=== PATIENT | female | born 1970 | race American Indian/Alaskan Native ===

== ENCOUNTER 2019-07-31 09:38 | Day surgery (SDC) | payer OTHER ==
[2019-07-31] MEDS ORDERED: NACL 0.9% 1000 ML 1,000 ML ONE (11:00)
[2019-07-31] MEDS ORDERED: NACL 0.9% 1000 ML 1,000 ML IV SCH (12:00)
--- NOTE | 2019-07-31 13:52 | Anesthesia Consultation ---
Anesthesia Consult and Med Hx Date of service: 07/31/19 - Airway Anesthetic Teeth Evaluation: Crowns ROM Head & Neck: Adequate Mental/Hyoid Distance: Adequate Mallampati Class: Class I Intubation Access Assessment: Good - Pulmonary Exam CTA: Yes - Cardiac Exam Cardiac Exam: RRR - Pre-Operative Health Status ASA Pre-Surgery Classification: ASA3 Proposed Anesthetic Plan: MAC - Pulmonary Hx Smoking: No Hx Respiratory Symptoms: No SOB: No Hx Sleep Apnea: Yes - Endocrine Hx Liver Disease: (ELEVATED LIVER ENZYMES) - Other Systems Hx Substance Use: Yes (Marijuana one week ago) - Additional Comments Anesthesia Medical History Comments: Hx. Pumonary fibrosis; Rheumatoid arthritis
--- NOTE | 2019-07-31 13:54 | Anesthesia Day of Surgery ---
Anesthesia Day of Surgery - Day of Surgery Patient Examined: Yes Patient H&P Reviewed: Yes Patient is NPO: Yes
[2019-07-31] MEDS ORDERED: SUBLIMAZE ONE (13:58)
[2019-07-31] MEDS ORDERED: DIPRIVAN 10 MG/ML IV ONE (13:58)
--- NOTE | 2019-07-31 14:09 | Operative Report ---
Operative Report Operative Report: Date of procedure: 07/31/2019 Procedure: Esophagogastroduodenoscopy with multiple mucosal biopsies Attending physician: Bebeto Yadav MD Furnace Charging Machine Operator: Bebeto Yadav MD Indication: Patient is a 49-year-old female who presented with a history of epigastric pain heartburn indigestion with gastroparesis. An upper endoscopy is done to assess patient so that treatment may be directed based on the findings. Consent: Informed consent was obtained after advising the patient and family regarding nature of this procedure, its indications, potential benefits as well as possible complications including but not limited to bleeding perforation and adverse reaction to medication, infection as well as other cardiopulmonary complications. An informed written and verbal consent was then obtained after due opportunity was provided for questions and answers. Monitoring: Patient was monitored continuously with pulse oximetry and electrocardiographic recordings as well as blood pressure recordings. Vital signs remained stable throughout this procedure with no untoward events. Preoperative assessment: Patient was assessed immediately prior to this procedure for capacity to tolerate monitored anesthesia care and moderate sedation as well as general anesthesia. Patient's ASA classification is 2, Mall ampati class is 2, Hyomental distance is 3. Instrument: Olympus video endoscope Medications: Propofol given intravenously in divided doses. For details please refer to anesthesia records. Description of procedure: Patient was placed in the left lateral decubitus position after achieving sedation, the endoscope was introduced into the esophagus under direct vision. It was then advanced beyond the esophagus into the stomach and then beyond the stomach into the duodenum and to the second portion of the duodenum. It was subsequently withdrawn with careful inspection of all mucosal surfaces with the following findings. Findings: In the esophagus, the Z line was irregular at 38 cm. There was erythema and some erosions, seen in the gastric antrum. Biopsies of the antrum were obtained for histopathology. The duodenum was normal to second portion. Impression: Irregular Z line Antral erosions Gastric antral erythema. Plan: Follow pathology report. Continue treatment with proton pump inhibitors and direct additional treatment based on the pathology report. There was no retained gastric contents given stated history of gastroparesis.
--- NOTE | 2019-07-31 14:10 | Discharge Summary ---
Short Stay Discharge Plan Activity: advance as tolerated Weight Bearing Status: Weight Bear as Tolerated Diet: regular Follow up with: [facility] [Primary Care Provider] - 7 Days
[2019-07-31 14:53] VITALS: BP 138/80
== END 2019-07-31 09:39 | disposition home or self-care (01) ==
LOC: GIO 09:38
PROVIDERS: ATTEND Internal Medicine Gastroenterology
DX: K31.84 Gastroparesis (principal); R12 Heartburn; G47.30 Sleep apnea, unspecified; M06.9 Rheumatoid arthritis, unspecified; Z88.8 Allergy status to other drugs, medicaments and biological substances; Z79.899 Other long term (current) drug therapy; Z96.653 Presence of artificial knee joint, bilateral; Z98.890 Other specified postprocedural states
CPT/HCPCS: 43239; 81025; 88305; 88342; J2704; J3010; J7030

== ENCOUNTER 2019-11-02 09:38 | Day surgery (SDC) | payer OTHER ==
[~2019-11-02 09:38] MED LIST: SODIUM CHLORIDE 0.9% 1000 ML 1,000 ML IV SCH
--- NOTE | 2019-11-02 11:10 | Anesthesia Consultation ---
Anesthesia Consult and Med Hx Date of service: 11/02/19 - Airway Anesthetic Teeth Evaluation: Good ROM Head & Neck: Adequate Mental/Hyoid Distance: Adequate Mallampati Class: Class II Intubation Access Assessment: Probably Good - Pre-Operative Health Status ASA Pre-Surgery Classification: ASA3 Proposed Anesthetic Plan: MAC - Pulmonary Hx Smoking: No Hx Respiratory Symptoms: No SOB: No COPD: No (pulmonary fibrosis) Hx Sleep Apnea: Yes - Central Nervous System Hx Neuromuscular Disorder: Yes (Sjorgen's syndrome) Hx Psychiatric Problems: Yes (PTSD) - Gastrointestinal Hx Gastroesophageal Reflux Disease: Yes - Endocrine Hx Liver Disease: (ELEVATED LIVER ENZYMES) - Other Systems Hx Substance Use: Yes (Marijuana one week ago)
--- NOTE | 2019-11-02 11:11 | Anesthesia Day of Surgery ---
Anesthesia Day of Surgery - Day of Surgery Patient Examined: Yes Patient H&P Reviewed: Yes Patient is NPO: Yes
[2019-11-02] MEDS ORDERED: PROPOFOL 200 MG/20 ML VIAL IV ONE ×3 (11:13→12:08)
--- NOTE | 2019-11-02 12:13 | Operative Report ---
Operative Report Operative Report: Colonoscopy with Multiple Snare polypectomies, Multiple Hot Biopsy Polypectomies, Ablation of multiple colon polyps and Multiple submucosal injections. Attending physician: Bebeto Yadav M.D. Unit Aide Tech: Bebeto Yadav M.D. Indication: Patient is a 49-year-old female who presents for screening colonoscopy. This colonoscopy serves to evaluate patient so that treatment may be directed based on the findings. Consent: Informed consent was obtained after advising the patient and family re garding nature of this procedure, its indications, potential benefits as well as possible complications including but not limited to bleeding perforation and adverse reaction to medication, infection as well as other cardiopulmonary complications. An informed written and verbal consent was then obtained after due opportunity was provided for questions and answers. Monitoring: Patient was monitored continuously with pulse oximetry and electrocardiographic recordings as well as blood pressure recordings. Vital signs remained stable throughout this procedure with no untoward events. Preoperative assessment: Patient was assessed immediately prior to this procedure for capacity to tolerate monitored anesthesia care and moderate sedation as well as general anesthesia. Patient's ASA classification is 3, Mallampati class is 2, Hyomental distance is 3. Instrument: Olympus video colonoscope CF [id number] Medications: Propofol given intravenously in divided doses. For details please refer to anesthesia records. Description of procedure: Patient was placed in the left lateral decubitus position after achieving sedation, a digital rectal examination was performed following which the colonoscope was introduced into the anal verge and advanced to the cecum which was identified by the cecal valve, the appendiceal orifice, as well as by the cecal strap and direct transillumination. The colonoscope was subsequently withdrawn with careful inspection of all mucosal surfaces. Patient tolerated this procedure well and was subsequently taken to the recovery room. The following findings were noted. Findings: The preparation was poor. The Aurora prep scale score was 4 . The patient had substantial retained thick liquid and semi-formed stool in various sections of the colon. The withdrawal time from the cecum to the rectum was 14 minutes. The colon was moderately tortuous. The procedure was somewhat technically difficult due to colonic tortuosity. The cecum otherwise was no rmal. The ascending colon was normal. The transverse colon was normal. Patient had 3 diminutive flat polyps in this descending colon that were ablated. None multiple diminutive polyps in the sigmoid colon largest measured approximate 6 mm deep polyps. There is good flat or sessile. All polyps were removed by hot biopsy polypectomy and retrieved. The rectum, patient had 3 polyps each measuring approximately 8 mm to 1 cm. The polyps at adherent mucus In Them Suggesting That They Slept Polyp Probably Serrated Polyps. All Polyps Were Removed after Submucosal Injection with Normal Saline by cold snare Polypectomy. On the retroflexed view of the anal verge, vision had internal hemorrhoids. Impression: Descending colon polyps status post ablation. Multiple sigmoid colon polyps status post hot biopsy polypectomy. Multiple rectal polyps status post submucosal injection and snare polypectomy Internal hemorrhoids Plan: Follow pathology report. High-fiber diet. Repeat colonoscopy in 6-12 months due to poor colonoscopic preparation.
--- NOTE | 2019-11-02 12:14 | Discharge Summary ---
Short Stay Discharge Plan Activity: advance as tolerated Weight Bearing Status: Weight Bear as Tolerated Diet: regular Follow up with: [facility] [Primary Care Provider] - 7 Days
[2019-11-02 12:32] VITALS: BP 138/78
[2019-11-02] MEDS ORDERED: LIDOCAINE MPF (2%) 20 MG/1 ML VIAL 5 ML ONE (13:00)
--- NOTE | 2019-11-02 13:28 | Post Anesthesia Evaluation ---
- Post Anesthesia Evaluation Patient Participated: Yes Airway Patent: Yes Stable Respiratory Function: Yes Nausea/Vomiting: No Temp > 96.8F: Yes Pain Manageable: Yes Adequeate Hydration: Yes Anesthesia Complications: No Block Receding Appropriately: Not Applicable Patient on Ventilator: No
== END 2019-11-02 09:39 | disposition home or self-care (01) ==
LOC: GIO 09:38
PROVIDERS: ATTEND Internal Medicine Gastroenterology
DX: Z12.11 Encounter for screening for malignant neoplasm of colon (principal); K64.8 Other hemorrhoids; K63.5 Polyp of colon; K62.1 Rectal polyp; G47.33 Obstructive sleep apnea (adult) (pediatric); J44.9 Chronic obstructive pulmonary disease, unspecified; M06.9 Rheumatoid arthritis, unspecified; Z96.653 Presence of artificial knee joint, bilateral; Z98.890 Other specified postprocedural states; Z79.899 Other long term (current) drug therapy
CPT/HCPCS: 45381; 45384; 45385; 45388; 81025; 88305; J2704; J7030